=== PATIENT | male | born 1955 | race Caucasian/White ===

== ENCOUNTER 2017-09-21 07:03 | Day surgery (SDC) | payer MEDICARE, BC ==
[2017-09-20 08:54] VITALS: BMI 30.7
[~2017-09-21 07:03] MED LIST: FLU VACC QS2017-18 36 mo. & older 0.5 ML SYRINGE IM ONE
[2017-09-21 07:44] VITALS: BP 106/92; TEMP 97.5
--- NOTE | 2017-09-21 14:37 | SPC ---
LEFT UPPER EXTREMITY ARTERIOVENOUS DIALYSIS FISTULOGRAM AND VENOGRAM TO THE svc: DATE: 09/21/17. HISTORY: Nonmaturing left upper extremity arteriovenous dialysis fistula in a patient with end stage renal dis ease. FLUOROSCOPY: Total fluoroscopy time is 1.6 minutes with total dose of 12,770 mGy*^cm2. TECHNIQUE: After informed consent was obtained, the patient was placed on the angiography table in the supine po sition. The left upper extremity was meticulously prepped and draped in the usual sterile fashion. Limited sonographic evaluation of the fistula was performed prior to the fistulogram was performed. An area was marked and meticulously prepped and draped in the usual sterile fashion. The skin and billings bcutaneous tissues were infiltrated with buffered 1% Lidocaine for local anesthesia at the intended p uncture site. The left cephalic vein outflow was accessed utilizing micropuncture technique and [facility] guidance. A 4 Yoruba introducer sheath was placed. A fistulogram and venogram to the SVC were performed. Manual compression was applied to the cephalic vein outflow and the basilic vein outflow, and contrast refluxed into the cephalic outflow which als o demonstrated patency to the level of the SVC. A blood pressure cuff was applied to the upper arm and contrast was injected to reflux the arterioven ous anastomosis. The introducer sheath was removed, and hemostasis was achieved with direct pressure. The patient reji erated the procedure well and without immediate complication. A dry, sterile dressing was placed to the catheter entry site. The patient was briefly monitored in the radiology nurse's holding area dionte or to discharge. FINDINGS: Patent left upper extremity arteriovenous dialysis fistula with patent venous outflow to the SVC. Ve nous outflow is via both the basilic and cephalic veins, which are widely patent. A few collateral v essels are present upon injection of the cephalic vein outflow. Venous outflow to the SVC is patent. Reflux of the arteriovenous anastomosis demonstrates patency of the arteriovenous anastomosis. There is partial visualization of a tunneled right internal jugular vein hemodialysis catheter with t he tip overlying the distal SVC. IMPRESSION: 1. Patent left upper extremity arteriovenous dialysis fistula with venous outflow via both the cepha lic and basilic veins, each of which appear widely patent. Collateral vessels are seen involving eac h venous outflow. 2. Patent arteriovenous anastomosis. 3. The above findings were discussed with Dr. Richard immediately at the termination of this procedur e. CODE CR POS: FEI
== END 2017-09-21 09:25 | disposition home or self-care (01) ==
LOC: SPEC 07:03
PROVIDERS: ATTEND Specialist
PROC: B51WYZZ Fluoroscopy of Dialysis Shunt/Fistula using Other Contrast (ICD-10-PCS; principal; 2017-09-21)
DX: E11.22 Type 2 diabetes mellitus with diabetic chronic kidney disease (principal); I13.2 Hypertensive heart and chronic kidney disease with heart failure and with stage 5 chronic kidney disease, or end stage renal disease; N18.6 End stage renal disease; I50.9 Heart failure, unspecified; E78.5 Hyperlipidemia, unspecified; Z99.2 Dependence on renal dialysis; Z79.4 Long term (current) use of insulin; Z79.82 Long term (current) use of aspirin; Z79.899 Other long term (current) drug therapy; Z98.49 Cataract extraction status, unspecified eye; Z90.49 Acquired absence of other specified parts of digestive tract; Z98.890 Other specified postprocedural states
CPT/HCPCS: 36901; 76942

== ENCOUNTER 2017-09-28 12:23 | Day surgery (SDC) | payer MEDICARE, BC ==
--- NOTE | 2017-09-27 09:15 | HP ---
HISTORY OF PRESENT ILLNESS: Stephon Urbano is a 61-year-old male with end-stage renal disease, dialyz es Wednesday, Wednesday, and Wednesday at 11:00 a.m. at [facility]. Patient had a left arm fistul a established on 07/09/2017, inflow proximal radial artery which was mildly arteriosclerotic, outflow primarily cephalic vein with preservation of the retrograde antecubital vein. Communication of basi lic vein present but secondary due to anatomic considerations. He has slow maturation of this fistul a and went for a fistulogram today noting a prominent collateral in the distal upper arm. Plan is to ligate that collateral after identification with intraoperative fistulogram. This can be performed under IV sedation, local anesthesia. He understands risks and benefits. We will plan this as an out patient next week. MEDICATIONS: Lantus insulin 25 units subcutaneous, Humalog insulin with meals, baby aspirin 81 mg a day, carvedilol 3.125 mg orally, atorvastatin 40 mg orally, vitamins, and probiotics. PAST SURGICAL HISTORY: Left arm AV fistula and hemodialysis catheter on 07/08/2017. On 07/08/2017 a mputation of left great toe and second toe and metatarsal healing by secondary intention. PAST MEDICAL HISTORY: End-stage renal disease, diabetes mellitus, hypertension, elevated cholesterol . REVIEW OF SYSTEMS: Ten-point noncontributory. PHYSICAL EXAMINATION: VITAL SIGNS: Weight 204 pounds, 5 feet 11 inches, 28 BMI, 153/52, 68, 97.5 degrees. HEAD, EYES, EARS, NOSE, THROAT: Unremarkable. LUNGS: Clear to auscultation. CARDIAC: Regular rate and rhythm without murmur or gallop. ABDOMEN: Soft, nontender, no masses. Hemodialysis catheter exit site healthy. Suture removed. EXTREMITIES: Left upper arm fistula, good thrill and bruit. Left foot from amputation of his great toe and second toe and metatarsal with the wound left open for healing by secondary intention has hea led completely with a wound VAC. I have told that he can discontinue dressings. ASSESSMENT AND PLAN: 1. Collaterals of left arm fistula. Plan ligation of collaterals after identification with intraope rative angiograms. Risks and benefits explained and he consents. IV access blood draws through his dialysis catheter, outpatient IV sedation, local anesthesia. 2. Diabetes mellitus. 3. Hypertension. 4. Status post amputation of left great second toes, wound healed, no dressing is necessary. Dr. Mohit hernandez had seen him for peripheral artery disease.
[2017-09-27 16:41] VITALS: BMI 27.0
[2017-09-28] MEDS ORDERED: Bupivacaine PF 0.5% 30 ML VIAL ONE (13:01)
[2017-09-28] MEDS ORDERED: Midazolam HCl 2 mg/2 ml Vial ONE (14:00)
[2017-09-28] MEDS ORDERED: Fentanyl 100 MCG/2 ML VIAL ONE ×2 (14:00→15:07)
[2017-09-28] MEDS ORDERED: Ioversol 68 % 50 ML VIAL ONE ×3 (14:05→15:26)
[2017-09-28] MEDS ORDERED: Bupivacaine/Epinephrine 0.25% 30 ML VIAL ONE (14:05)
[2017-09-28] MEDS ORDERED: Protamine Sulfate 50 MG/5 ML VIAL ONE (14:05)
[2017-09-28] MEDS ORDERED: Heparin 5,000 UNITS/ML VIAL ONE (14:06)
[2017-09-28 14:16] LABS: #Eosinphils 0.4 thou/uL (0.0-0.7); #Lymphocytes 1.9 thou/uL (1.20-3.40); #Monocytes 0.8 thou/uL (0.11-0.59); #Neutrophils 4.2 thou/uL (1.40-6.50); %Basophils 0.2 % (0.0-1.0); %Eosinophils 5.6 % (0.0-10.0); %Monocytes 10.6 % (0.0-10.0); Hematocrit 41.1 % (42.0-52.0); Mean Platelet Volume 9.1 fL (7.4-10.4); Red Blood Cell (RBC) Count 4.38 mill/uL (4.70-6.10); White Blood Cell (WBC) Count 7.2 thou/uL (4.8-10.8)
[2017-09-28 14:38] LABS: Anion Gap 14 mmol/L (10-20); BUN (Urea Nitrogen) 43 mg/dL (8.4-25.7); Calc. Creatinine Clearance 22 mL/min (70-130); Calcium 9.5 mg/dL (7.8-10.44); Carbon Dioxide 26 mmol/L (23-31); Chloride 100 mmol/L (98-107); Estimated GFR-MDRD 13
[2017-09-28] MEDS ORDERED: Heparin 10,000 UNITS/ 10 ML VIAL ONE ×2 (14:39→17:12)
[2017-09-28] MEDS ORDERED: Labetalol HCl 100 MG/20 ML VIAL ONE (16:14)
--- NOTE | 2017-09-28 20:09 | OP ---
DATE OF PROCEDURE: 09/28/2017 PREOPERATIVE DIAGNOSES: End-stage renal disease, poorly maturing fistula left upper arm, multiple co llaterals by fistulogram. PROCEDURE: Intraoperative angiogram with ligation of collaterals. SURGEON: Dr. Ramos. ANESTHESIA: Regional TIVA. PROCEDURE: Patient was taken to the operating room where under intravenous sedation and regional ane sthesia, left upper extremity was prepared with ChloraPrep, draped in routine fashion. Angiocath 21 gauge cannulated the fistula just above the antecubital fossa line. Intraoperative angiograms using fluoroscopy revealed multiple collaterals. I found this very difficult to find the collaterals as th ey were large. After some persistence, I cut down on 2 areas locating the collaterals and ligating t hem and clipping them. Repeat fistulogram revealed another collateral more superiorly and I cut down , performed and this was ligated. Completion of angiograms revealed absence of any significant colla terals, good flow in the cephalic vein fistula. Subcutaneous tissue was approximated with 3-0 Monocr yl, skin with subdermal 4-0 Monocryl and DermaGlue applied.
== END 2017-09-28 17:55 | disposition home or self-care (01) ==
LOC: SDC 12:23
PROVIDERS: ATTEND Specialist
PROC: 05WY07Z Revision of Autologous Tissue Substitute in Upper Vein, Open Approach (ICD-10-PCS; principal; 2017-09-28)
DX: T82.590A Other mechanical complication of surgically created arteriovenous fistula, initial encounter (principal); E11.22 Type 2 diabetes mellitus with diabetic chronic kidney disease; I12.0 Hypertensive chronic kidney disease with stage 5 chronic kidney disease or end stage renal disease; N18.6 End stage renal disease; E78.00 Pure hypercholesterolemia, unspecified; Z79.4 Long term (current) use of insulin; Z79.899 Other long term (current) drug therapy; Z98.890 Other specified postprocedural states; Z89.412 Acquired absence of left great toe; Z99.2 Dependence on renal dialysis
CPT/HCPCS: 76001; 80048; 85025; 96374; J1644; J2250; J2720; J3010; Q9967; S0020

== ENCOUNTER → 2018-03-15 | Day surgery (SDC) | payer MEDICARE, BC ==
[2018-03-14 11:54] VITALS: BMI 27.0
[~2018-03-15] MED LIST changes: -FLU VACC QS2017-18 36 mo. & older 0.5 ML SYRINGE IM ONE; +Iopamidol 300 61% 100 ML VIAL FS ONE; +Prevnar 13-Val Conj/PF 0.5 ML SYRINGE IM ONE
[2018-03-15 07:18] VITALS: TEMP 97.9
--- NOTE | 2018-03-15 10:09 | SPC ---
LEFT UPPER EXTREMITY FISTULOGRAM: History: Malfunction left upper extremity fistula. Dosimetry: DAP 13.4 mGy*cm^2. 3.8 minutes of fluoroscopy. FINDINGS: Informed consent was obtained. The left upper extremity fistula was localized using palpation. The ov erlying skin was prepped and draped in the usual sterile manner. A 1% Lidocaine solution was used to anesthetize the overly soft tissues. A small dermatotomy was made. The left upper extremity fistula w as accessed using a 5 Czech micropuncture set. Fistulogram was performed which demonstrates an area of focal stenosis in the left cephalic vein just proximal to the anastomosis with the arterial portio n of the fistula. The 5 Czech micropuncture set was exchanged for a 6 Czech sheath. 3000 units of Heparin was given I V. Initially a 6-2 followed by an 8-4 mm angioplasty balloon was used to angioplasty the focal area o f cephalic vein stenosis. There is improved flow after the second angioplasty. The short 6 Czech she ath will be pulled after approximately 1.5 hours to allow for heparin to be metabolized. IMPRESSION: 1. Successful fluoroscopically guided left upper extremity fistulogram and angioplasty. POS: [facility]
== END ==
LOC: SPEC 06:47
PROVIDERS: ATTEND Specialist
PROC: 057F3ZZ Dilation of Left Cephalic Vein, Percutaneous Approach (ICD-10-PCS; principal; 2018-03-15)
DX: T82.858A Stenosis of other vascular prosthetic devices, implants and grafts, initial encounter (principal); N18.6 End stage renal disease; Z79.4 Long term (current) use of insulin; Z79.82 Long term (current) use of aspirin; Z79.899 Other long term (current) drug therapy
CPT/HCPCS: 36901; 36902; C1725; C1769

== ENCOUNTER 2018-05-24 12:57 | Outpatient (CLI) | payer MEDICARE, BC ==
[2018-05-24 13:21] LABS: #Eosinphils 0.3 thou/uL (0.0-0.7); #Lymphocytes 1.4 thou/uL (1.20-3.40); #Monocytes 0.5 thou/uL (0.11-0.59); %Basophils 0.8 % (0.0-1.0); %Eosinophils 4.9 % (0.0-10.0); %Lymphocytes 22.7 % (21.0-51.0); %Monocytes 8.1 % (0.0-10.0); %Neutrophils 63.5 % (42.0-75.0); Hemoglobin 10.6 g/dL (14.0-18.0); Mean Corpuscular HGB CONC 35.8 g/dL (32.0-36.0); Mean Corpuscular Hemoglobin 34.3 pg (27.0-31.0); Mean Corpuscular Volume 95.7 fL (78.0-98.0); Mean Platelet Volume 8.3 fL (7.4-10.4); Platelet Count 123 thou/uL (130-400); RBC Distribution Width 13.3 % (11.5-14.5); Red Blood Cell (RBC) Count 3.08 mill/uL (4.70-6.10); White Blood Cell (WBC) Count 6.3 thou/uL (4.8-10.8)
[2018-05-24 13:56] LABS: Anion Gap 16 mmol/L (10-20); BUN (Urea Nitrogen) 79 mg/dL (8.4-25.7); Calc. Creatinine Clearance 0 mL/min (70-130); Calcium 8.7 mg/dL (7.8-10.44); Carbon Dioxide 21 mmol/L (23-31); Chloride 104 mmol/L (98-107); Estimated GFR-MDRD 9; Glucose 183 mg/dL (80-115); Potassium 4.4 mmol/L (3.5-5.1); Sodium 137 mmol/L (136-145)
--- NOTE | 2018-05-24 18:04 | EKG ---
Test Reason : Blood Pressure : / mmHG Vent. Rate : 066 BPM Atrial Rate : 066 BPM P-R Int : 202 ms QRS Dur : 102 ms QT Int : 456 ms P-R-T Axes : 044 025 032 degrees QTc Int : 478 ms Normal sinus rhythm with sinus arrhythmia Normal ECG When compared with ECG of 08-JUL-2017 08:43, No significant change was found Confirmed by KARRIE ISBELL, SFlorentin ([id number]) on 05/24/2018 6:03:48 PM Referred By: ROMY Confirmed By:DR. Daniel YOON MD
== END 2018-05-24 12:58 | disposition home or self-care (01) ==
LOC: LABBT 12:57
PROVIDERS: ATTEND Specialist
DX: Z01.818 Encounter for other preprocedural examination (principal)
CPT/HCPCS: 80048; 85025; 93005; 93010

== ENCOUNTER 2018-05-26 09:57 | Day surgery (SDC) | payer MEDICARE, BC ==
[2018-05-24 13:15] VITALS: BMI 28.6
--- NOTE | 2018-05-24 18:18 | HP ---
HISTORY OF PRESENT ILLNESS: A 62-year-old male patient who in 09/2017, I placed a left arm fistula. He underwent intervention fistulogram on 03/15/2018 with angioplasty of the cephalic vein just above the antecubital fossa. Since that time in [facility] Pamela had difficulty accessing his fistula. There are only able to use the distal third upper arm of the fistula. I cannot access it in the proximal two thirds. He has a good thrill and bruit. Plan is to place a hemodialysis cathete r under ultrasound and fluoroscopy and then to superficialize/transpose left cephalic vein fistula un reggie general anesthesia. He understands the risk and benefits and consents. We will plan this as an outpatient and once the fistula heals, they can start accessing in 4 weeks postoperatively. MEDICATIONS: Florastor, multivitamins, Lipitor, amlodipine, insulin, baby aspirin a day, which he wi ll continue perioperatively, carvedilol daily, atorvastatin, multivitamins, and probiotic. PAST MEDICAL HISTORY: End-stage renal disease on maintenance dialysis at [facility]. He lives in [place]. He dialyzes Wednesday, Wednesday, and Wednesday at 5:00 a.m. PAST SURGICAL HISTORY: Dialysis access as noted above. TOBACCO: None. ALCOHOL: None. DRUG USE: None. SOCIAL HISTORY: The patient is . ALLERGIES: None. PHYSICAL EXAMINATION: VITAL SIGNS: 211 pounds, 71 inches, 203/57, 62, and 95 degrees. HEENT: Unremarkable. LUNGS: Clear to auscultation. CARDIAC: Regular rate and rhythm without murmur or gallop. ABDOMEN: Soft, nontender. EXTREMITIES: Unremarkable, neurologically intact. No focal deficits. Left arm fistula, good thrill and bruit. I cannot feel a good pulse on occlusion of the proximal two thirds of the fistula. ASSESSMENT AND PLAN: Difficult access fistula, mechanical malfunction of fistula is too deep. Plan superficialization. He has already had intervention and angioplasty, which has not help access .
[2018-05-26] MEDS ORDERED: Midazolam HCl 2 mg/2 ml Vial ONE ×2 (11:08→11:49)
[2018-05-26] MEDS ORDERED: Fentanyl 100 MCG/2 ML VIAL ONE ×2 (11:08→11:49)
[2018-05-26] MEDS ORDERED: Propofol 500 MG/50 ML VIAL ONE (11:49)
[2018-05-26] MEDS ORDERED: Protamine Sulfate 50 MG/5 ML VIAL ONE (11:54)
[2018-05-26] MEDS ORDERED: Heparin 5,000 UNITS/ML VIAL ONE (11:54)
[2018-05-26] MEDS ORDERED: Heparin 10,000 UNITS/1 ML VIAL ONE (11:54)
[2018-05-26] MEDS ORDERED: Bupivacaine HCl 0.5%/Epinephrine 1:200,000/PF 30 ml Vial ONE ×2 (11:54→12:59)
[2018-05-26] MEDS ORDERED: Lidocaine 2% 10 ML INJ ONE (11:54)
[2018-05-26] MEDS ORDERED: CEFAZOLIN/Water 2 GM/20 ML SYRINGE ONE (12:19)
[2018-05-26] MEDS ORDERED: Sodium Chloride 0.9% 20 ML ONE (13:00)
[2018-05-26] MEDS ORDERED: Iothalamate Meglumine 60% 50 ML VIAL FS ONE (14:03)
--- NOTE | 2018-05-26 16:11 | RAD ---
CHEST ONE VIEW 05/26/18 HISTORY: Postop dialysis catheter. COMPARISON: Radiograph 07/08/17. FINDINGS: A dialysis catheter is in place with tip at the mid SVC. Some mild atelectatic changes of the left paulino ng base. No pneumothorax. IMPRESSION: Uncomplicated placement of the right IJ central venous dialysis catheter. POS: FEI
--- NOTE | 2018-05-26 19:12 | OP ---
PREOPERATIVE DIAGNOSES: End-stage renal disease and dysfunction, left upper arm cephalic vein fistul a. POSTOPERATIVE DIAGNOSES: End-stage renal disease and dysfunction, left upper arm cephalic vein fistu la. PROCEDURE PERFORMED: Cephalic vein transposition fistula left upper arm with ligation of basilic vei n outflow and intraoperative angiograms. SURGEON: Dr. Mk Ramos ANESTHESIA: Regional TIVA. Local 0.5% Marcaine with epinephrine, 30 mL total volume used. PROCEDURE IN DETAIL: The patient was taken to the operating room under heavy sedation regional anest hesia, left upper extremity was prepped with ChloraPrep, draped in routine fashion. Incision made fr om the deltopectoral groove to the proximal volar forearm, carried through skin and subcutaneous tiss ue, unroofing the cephalic vein. To add low pressure, dissection carried out towards the arterial in flow in the forearm below the antecubital fossa. Basilic vein branch identified, dissected free, and ligated with 2-0 silk tie. This provided a much better outflow. During the dissection, there was a small venotomy created with bleeding just beyond the arterial anastomotic inflow and the distal uppe r arm by antecubital fossa and a Park catheter placed and it would not extend in the proximal cephal ic vein into the subclavian vein. Thus angiograms were repeated using fluoroscopy and there was no o bstruction. There was a good thrill. Good Doppler signal in the fistula after ligation of basilic v ein. At this point, a subcutaneous pocket created slightly medially and subcutaneous tissues below t his with 3-0 Monocryl and subcutaneous tissues, then run on the surface with continuous suture of 3-0 Monocryl, and ravin applied. Sterile dressing applied. Patient tolerated the procedure well.
== END 2018-05-26 16:00 | disposition home or self-care (01) ==
LOC: SDC 09:57
PROVIDERS: ATTEND Specialist
PROC: 05SF0ZZ Reposition Left Cephalic Vein, Open Approach (ICD-10-PCS; principal; 2018-05-26)
DX: T82.590A Other mechanical complication of surgically created arteriovenous fistula, initial encounter (principal); N18.6 End stage renal disease; Z79.82 Long term (current) use of aspirin; Z79.4 Long term (current) use of insulin; Z79.899 Other long term (current) drug therapy
CPT/HCPCS: 36818; 71045; 75710; 76001; 82962; C1752; C1769; 36416; A4216; J0670; J1642; J1644; J2250; J2704; J2720; J3010; Q9961